=== PATIENT | female | born 1965 | race Caucasian/White ===

== ENCOUNTER → 2024-02-10 11:17 | Outpatient (CLI) | payer BC, SELFPAY ==
--- NOTE | 2024-02-10 | DI.MRI.S_ITS ---
PROCEDURE: MR LOWER LEG LT WO CON INDICATIONS: Achilles tendinitis, left leg TECHNIQUE: Noncontrast coronal T1 spin echo and STIR, sagittal T1 spin echo with fat saturation and STIR; and axial T1 spin echo and T2 fast spin echo with fat saturation through the left lower leg. COMPARISON: None. FINDINGS: Image quality: Diagnostic. Bones: No acute trabecular bone injury or fracture. No suspicious osseous lesion. The knee and ankle are not well evaluated on this exam that is tailored for evaluation of the lower leg. Soft tissues: There is mildly increased T2/STIR signal within the soleus muscle as well as mild grade 2 fatty infiltration, which are asymmetric when compared to the contralateral side. Achilles tendon is mildly thickened consistent with tendinosis. No significant tendon tearing is seen. The visualized musculature is otherwise normal in signal intensity and bulk. No significant knee effusion or medial popliteal cyst. No mortise joint effusion. IMPRESSION: 1. Mildly increased T2-weighted signal and fatty infiltration throughout the left soleus muscle is suspicious for mild or early denervation changes. No mass or extrinsic compression is seen along the included course of the tibial nerve. 2. Mild left Achilles tendinosis without tendon tearing. Approved by: Brooks Chavarria M.D. on 02/10/2024 at 14:35
== END ==
PROVIDERS: PCP Registered Nurse; Referring Provider Podiatrist; Visit Provider Podiatrist
DX: M76.62 Achilles tendinitis, left leg (principal)
CPT/HCPCS: 73718

== ENCOUNTER → 2024-03-12 18:47 | Outpatient (CLI) | payer BC, SELFPAY ==
--- NOTE | 2024-03-12 18:50 | DI.MRI.S_ITS ---
PROCEDURE: MR LUMBAR SPINE WO CON INDICATIONS: LUMBAR RADIULOPATHY,SYMPTOMS PERSIST>6WKS TRTMNT TECHNIQUE: Noncontrast sagittal T1 spin echo and T2 fast echo, sagittal STIR, and T2 fast spin echo through the lumbar spine. In cases with scoliosis, additional coronal T2 fast spin echo may be performed. COMPARISON: None. FINDINGS: Image quality: Excellent. Alignment and Curvature: There is mild anterolisthesis seen at the L4-L5 level. No associated pars defects are seen. Bone Marrow: Marrow is of normal overall signal. No acute vertebral body compression fractures. Spinal Cord: Conus medullaris terminates at the T12-L1 level. Visualized cord demonstrates normal signal and size. Paraspinous Soft Tissues: No paravertebral masses. T12-L1: Normal appearance. L1-L2: Normal appearance. L2-L3: Normal appearance. L3-L4: The disc height is well-preserved. Loss of disc signal is seen at this level. Mild to moderate disc bulge is seen. Mild facet joint hypertrophy is seen. There is [id number] right-sided and moderate left-sided neural foraminal narrowing. Minimal central canal narrowing is seen. L4-L5: [id number] loss of disc height and disc signal can be seen. Moderate generalized disc bulge is seen. Moderate facet joint hypertrophy is seen. Associated hypertrophy of the ligamentum flavum can be seen. There is moderate right-sided and at least moderate left-sided neural foraminal narrowing. There is a mild degree of compression seen upon the exiting left L4 nerve root. Minimal central canal narrowing is seen. L5-S1: The disc height is well-preserved. Loss of disc signal is seen at this level. Mild facet joint hypertrophy is seen. Mild to moderate bilateral neural foraminal narrowing is seen. No central canal narrowing is seen. IMPRESSION: Lower lumbar spine degenerative changes are seen, which are worst at the L4-L5 level. Dictated by: Norberto Rojo M.D. on 03/15/2024 at 13:09 Approved by: Norberto Rojo M.D. on 03/15/2024 at 13:12
== END ==
PROVIDERS: PCP Registered Nurse; Referring Provider Family Medicine; Visit Provider Family Medicine
DX: M54.42 Lumbago with sciatica, left side (principal); G89.29 Other chronic pain; M62.58 Muscle wasting and atrophy, not elsewhere classified, other site; M47.816 Spondylosis without myelopathy or radiculopathy, lumbar region
CPT/HCPCS: 72148